=== PATIENT | male | born 1935 | race Caucasian/White ===

== ENCOUNTER 2019-05-12 14:50 | Outpatient (REF) | payer MEDICARE, BC, SELFPAY ==
[2019-05-12 15:34] LABS: Abs Immature Grans 0.13 k/cumm (0.0-0.09); Absolute Basophil Count 0.04 k/cumm (0.0-0.2); Absolute Eosinophil Count 0.14 k/cumm (0.0-0.7); Absolute Lymphocyte Count 2.47 k/cumm (1.2-3.4); Absolute Monocyte Count 1.09 k/cumm (0.11-0.7); Basophils % 0.4; Eosinophils % 1.3; HGB 11.8 g/dL (13.5-17.5); Immature Grans % 1.2 %; Lymphocytes % 22.7; Mean Corp. HGB Concentration 35.8 g/dL (32.0-36.0); Mean Corpuscular Hemoglobin 33.5 pg (27.0-33.0); Mean Corpuscular Volume 93.8 fL (80-95); Mean Platelet Volume 9.1 fL (8.0-11.0); Neutrophils % 64.4; Platelet Count 212 x1000/uL (130-400); RBC 3.52 m/cumm (4.50-6.00); RBC Distribution Width 16.3 % (11.8-14.1)
[2019-05-12 15:35] LABS: Absolute Neutrophil Count 7.02 k/cumm (1.2-6.7)
[2019-05-12 15:44] LABS: Anion Gap 8.2 mmol/L (3-11); BUN 18 mg/dL (7-18); CO2 23.8 mmol/L (21.0-32.0); CREATININE 1.64 mg/dL (0.70-1.30); Calcium 7.6 mg/dL (8.5-10.1); Chloride 101 mmol/L (98-107); Estimated GFR 40.32 (mL/min/1.73m2); Glucose 145 mg/dL (74-106); Potassium 3.6 mmol/L (3.5-5.1); Sodium 133 mmol/L (136-145)
== END 2019-05-12 15:10 ==
LOC: LBN 14:50
PROVIDERS: Visit Provider Family Medicine
DX: K74.69 Other cirrhosis of liver (principal); I95.1 Orthostatic hypotension
CPT/HCPCS: 80048; 85025

== ENCOUNTER 2019-05-16 10:03 | Outpatient (CLI) | payer MEDICARE, BC, SELFPAY ==
[2019-05-16 11:46] LABS: Ammonia 87 umol/L (11-32)
[2019-05-16 11:56] LABS: ALT 25 U/L (16-63); AST 52 U/L (15-37); Albumin 2.1 g/dL (3.4-5.0); Alkaline Phosphatase 198 U/L (46-116); Anion Gap 12.5 mmol/L (3-11); BUN 27 mg/dL (7-18); Bilirubin, Total 1.9 mg/dL (0.2-1.0); CO2 21.5 mmol/L (21.0-32.0); CREATININE 1.78 mg/dL (0.70-1.30); Calcium 7.7 mg/dL (8.5-10.1); Chloride 104 mmol/L (98-107); Estimated GFR 36.68 (mL/min/1.73m2); Glucose 97 mg/dL (74-106); Potassium 3.6 mmol/L (3.5-5.1); Sodium 138 mmol/L (136-145); Total Protein 5.4 g/dL (6.4-8.2)
[2019-05-16 13:44] LABS: Abs Immature Grans 0.06 k/cumm (0.0-0.09); Absolute Basophil Count 0.01 k/cumm (0.0-0.2); Absolute Eosinophil Count 0.07 k/cumm (0.0-0.7); Absolute Lymphocyte Count 1.97 k/cumm (1.2-3.4); Basophils % 0.1; Eosinophils % 0.7; HCT 32.8 % (40.0-50.0); HGB 11.4 g/dL (13.5-17.5); Immature Grans % 0.6 %; Lymphocytes % 19.3; Mean Corp. HGB Concentration 34.8 g/dL (32.0-36.0); Mean Corpuscular Hemoglobin 32.7 pg (27.0-33.0); Mean Platelet Volume 9.1 fL (8.0-11.0); Monocytes % 8.8; Neutrophils % 70.5; Platelet Count 195 x1000/uL (130-400); RBC 3.49 m/cumm (4.50-6.00); RBC Distribution Width 16.7 % (11.8-14.1); White Blood Cell Count 10.21 k/cumm (4.4-10.8)
== END 2019-05-16 10:23 ==
PROVIDERS: Visit Provider Nurse Practitioner Adult Health
DX: K70.31 Alcoholic cirrhosis of liver with ascites (principal); N40.1 Benign prostatic hyperplasia with lower urinary tract symptoms
CPT/HCPCS: 36415; 80053; 82140; 85025

== ENCOUNTER 2019-05-21 17:07 | Outpatient (REF) | payer MEDICARE, BC, SELFPAY ==
[2019-05-21 12:36] LABS: Abs Immature Grans 0.15 k/cumm (0.0-0.09); HCT 34.9 % (40.0-50.0); HGB 12.1 g/dL (13.5-17.5); Mean Corp. HGB Concentration 34.7 g/dL (32.0-36.0); Mean Corpuscular Hemoglobin 32.7 pg (27.0-33.0); Mean Corpuscular Volume 94.3 fL (80-95); Mean Platelet Volume 9.3 fL (8.0-11.0); Platelet Count 247 x1000/uL (130-400); RBC Distribution Width 17.1 % (11.8-14.1); White Blood Cell Count 16.42 k/cumm (4.4-10.8)
[2019-05-21 12:49] LABS: Absolute Eosinophil Count 0.16 k/cumm (0.0-0.7); Absolute Monocyte Count 1.48 k/cumm (0.11-0.7); Absolute Neutrophil Count 12.32 k/cumm (1.2-6.7); Anisocytosis 1+; Diff Comment Manual Differential
[2019-05-21 12:50] LABS: Poikilocytes 1+; Polychromasia Present
[2019-05-21 13:00] LABS: ALT 38 U/L (16-63); AST 84 U/L (15-37); Albumin 1.8 g/dL (3.4-5.0); Alkaline Phosphatase 210 U/L (46-116); Anion Gap 11.6 mmol/L (3-11); BUN 36 mg/dL (7-18); Bilirubin, Total 2.5 mg/dL (0.2-1.0); CO2 21.4 mmol/L (21.0-32.0); Calcium 7.2 mg/dL (8.5-10.1); Chloride 101 mmol/L (98-107); Estimated GFR 25.98 (mL/min/1.73m2); Glucose 141 mg/dL (74-106); Potassium 3.9 mmol/L (3.5-5.1); Sodium 134 mmol/L (136-145); Total Protein 5.1 g/dL (6.4-8.2)
== END 2019-05-21 17:27 ==
LOC: LBN 17:07
PROVIDERS: Referring Provider Nurse Practitioner Adult Health; Visit Provider Family Medicine
DX: R06.00 Dyspnea, unspecified (principal)
CPT/HCPCS: 80053; 85025

== ENCOUNTER 2019-05-21 17:35 | Outpatient (REF) | payer MEDICARE, BC, SELFPAY ==
[2019-05-24 08:42] LABS: COVID-19 RT-PCR Result Not Detected (NotDetected)
== END 2019-05-21 17:55 ==
LOC: LBN 17:35
PROVIDERS: Visit Provider Nurse Practitioner Adult Health
DX: Z20.828 Contact with and (suspected) exposure to other viral communicable diseases (principal); Z11.59 Encounter for screening for other viral diseases; J06.9 Acute upper respiratory infection, unspecified
CPT/HCPCS: 87449; U0003

== ENCOUNTER 2019-05-23 13:41 | Outpatient (REF) | payer MEDICARE, BC, SELFPAY ==
[2019-05-23 14:32] LABS: Abs Immature Grans 0.19 k/cumm (0.0-0.09); Absolute Basophil Count 0.02 k/cumm (0.0-0.2); Absolute Eosinophil Count 0.08 k/cumm (0.0-0.7); Absolute Lymphocyte Count 2.49 k/cumm (1.2-3.4); Absolute Monocyte Count 1.83 k/cumm (0.11-0.7); Basophils % 0.1; Eosinophils % 0.5; HGB 11.8 g/dL (13.5-17.5); Immature Grans % 1.1 %; Lymphocytes % 14.8; Mean Corp. HGB Concentration 34.7 g/dL (32.0-36.0); Mean Corpuscular Hemoglobin 32.5 pg (27.0-33.0); Mean Corpuscular Volume 93.7 fL (80-95); Mean Platelet Volume 9.7 fL (8.0-11.0); Monocytes % 10.9; Neutrophils % 72.6; Platelet Count 246 x1000/uL (130-400); RBC 3.63 m/cumm (4.50-6.00)
[2019-05-23 14:43] LABS: Anisocytosis 2+; Burr Cells (echinocyte) 2+; Diff Comment Agrees w/ Instrument; Polychromasia Present
== END 2019-05-23 14:01 ==
LOC: LBN 13:41
PROVIDERS: Visit Provider Nurse Practitioner Adult Health
DX: K70.31 Alcoholic cirrhosis of liver with ascites (principal); I50.22 Chronic systolic (congestive) heart failure
CPT/HCPCS: 85025

== ENCOUNTER 2019-05-26 13:04 | Outpatient (REF) | payer MEDICARE, BC, SELFPAY ==
[2019-05-26 13:40] LABS: Abs Immature Grans 0.18 k/cumm (0.0-0.09); HCT 32.5 % (40.0-50.0); HGB 11.2 g/dL (13.5-17.5); Mean Corp. HGB Concentration 34.5 g/dL (32.0-36.0); Mean Corpuscular Hemoglobin 31.7 pg (27.0-33.0); Mean Corpuscular Volume 92.1 fL (80-95); Mean Platelet Volume 9.2 fL (8.0-11.0); Platelet Count 195 x1000/uL (130-400); RBC 3.53 m/cumm (4.50-6.00); RBC Distribution Width 16.9 % (11.8-14.1); White Blood Cell Count 17.72 k/cumm (4.4-10.8)
[2019-05-26 14:01] LABS: ALT 174 U/L (16-63); Albumin 1.8 g/dL (3.4-5.0); Alkaline Phosphatase 370 U/L (46-116); Anion Gap 15.7 mmol/L (3-11); BUN 67 mg/dL (7-18); Bilirubin, Total 2.2 mg/dL (0.2-1.0); CO2 17.3 mmol/L (21.0-32.0); Calcium 7.5 mg/dL (8.5-10.1); Chloride 94 mmol/L (98-107); Estimated GFR 12.45 (mL/min/1.73m2); Glucose 86 mg/dL (74-106); Potassium 4.8 mmol/L (3.5-5.1); Sodium 127 mmol/L (136-145); Total Protein 5.3 g/dL (6.4-8.2)
[2019-05-26 14:07] LABS: CREATININE 4.54 mg/dL (0.70-1.30)
[2019-05-26 14:08] LABS: AST 1119 U/L (15-37)
[2019-05-26 14:58] LABS: Absolute Lymphocyte Count 2.13 k/cumm (1.2-3.4); Absolute Monocyte Count 1.42 k/cumm (0.11-0.7)
[2019-05-26 14:59] LABS: Anisocytosis 2+; Burr Cells (echinocyte) 2+; Diff Comment Manual Differential
== END 2019-05-26 13:24 ==
LOC: LBN 13:04
PROVIDERS: Visit Provider Nurse Practitioner Adult Health
DX: K73.9 Chronic hepatitis, unspecified (principal)
CPT/HCPCS: 80053; 85025